=== PATIENT | male | born 1955 | race American Indian/Alaskan Native ===

== ENCOUNTER 2017-08-24 10:06 | Outpatient (CLI) | payer MEDICARE ==
--- NOTE | 2017-08-24 13:37 | Cat Scan Report ---
CT abdomen and pelvis without contrast: Abdominal pain. Transverse images obtained from the lower chest to the ischium with coronal and sagittal 2-D reformatted images. Cardiovascular calcifications are noted. The visualized lungs are clear. The abdominal and retroperitoneal organs appear generally unremarkable. The abdominal aorta is normal in size and contour. The partially opacified small bowel is unremarkable. The large bowel appears to be completely in the left hemiabdomen. The anatomy is difficult to assess and it is unclear as to whether there may have been a partial resection. History correlation not currently available. The mesentery is generally unremarkable. There's no obvious adenopathy but without the presence of IV contrast this assessment is difficult. No free fluid and no free air identified. No inflammatory change is noted. Impression: No acute pathology.
== END 2017-08-24 10:07 | disposition home or self-care (01) ==
LOC: SPVIMAG 10:06
PROVIDERS: ATTEND Internal Medicine
DX: R10.9 Unspecified abdominal pain (principal)
CPT/HCPCS: 74176